=== PATIENT | male | born 2000 | race Caucasian/White ===

== ENCOUNTER 2019-07-22 20:04 | Emergency (ER) | payer OTHER ==
--- NOTE | 2019-07-22 20:37 | EDM.PDOC ---
ED HPI GENERAL MEDICAL PROBLEM - General Chief Complaint: Fever Stated Complaint: POSSIBLE COVID 19 Time Seen by Provider: 07/22/19 20:15 Source of Information: Reports: Patient History Limitations: Reports: No Limitations - History of Present Illness INITIAL COMMENTS - FREE TEXT/NARRATIVE: Patient is 19-year-old male with no significant past medical history presenting with a chief complaint of fever and cough. Duration of symptoms within 1 day. Patient states that he has associated sore throat. Patient denies any associated shortness of breath or myalgias. Patient has no recent travels no sick contacts. Patient sister works for the [employer]. Patient lives with 1 roommate. Patient denies any difficulty breathing, difficulty swallowing , vomiting or diarrhea. Patient took TheraFlu with minimal relief of symptoms. Pmhx: None Pshx: None Family Hx: noncontributory Smoking history? no Etoh use? none Drug use? none In addition to that documented in the HPI above, the additional ROS was obtained : Constitutional: Subjective fever Eyes: Denies vision changes ENMT: Per HPI CV: Denies chest pain Resp: Denies SOB GI: Denies vomiting or diarrhea : Denies painful urination MSK: Denies recent trauma Skin: Denies new rashes Neuro: Denies new numbness or tingling or weakness Endocrine: Denies unexpected weight loss Heme: Denies bleeding disorders I have reviewed the triage vital signs Const: Well nourished, well developed, appears stated age Eyes: Pupils equal bilaterally, no conjunctival injection HENT: NCAT, Neck supple without meningismus CV: Well-perfused extremities RESP: Respirations are normal, unlabored respiratory effort GI: soft, non-tender, non-distended, no masses MSK: No gross deformities appreciated Skin: Warm, dry. No rashes Neuro: Alert, grease man II-XII grossly intact. Moving all 4 extremities equally Psych: Appropriate mood and affect Assessment and plan: Patient is 19-year-old male no significant past medical history presenting with cough and fever. Patient likely has upper respiratory tract infection. However , given the current outbreak of COVID-19 patient will be swabbed for the coronavirus. Patient does not meet any inpatient admission criteria. No evidence of pneumonia based on symptoms and exam. Patient will be given return precautions and education regarding isolation. All questions were addressed and answered. Patient given Tessalon for cough. Patient given monitoring instructions and when to return to the ER. throat Pain Score (Numeric/FACES): 5 - Related Data Allergies Allergy/AdvReac Type Severity Reaction Status Date / Time No Known Allergies Allergy Verified 07/22/19 20:11 Home Meds: Home Meds . [No Known Home Meds] 07/22/19 [History] Past Medical History - Infectious Disease History Infectious Disease History: Reports: Chicken Pox - Past Surgical History GI Surgical History: Reports: Appendectomy Musculoskeletal Surgical History: Reports: Other (See Below) Other Musculoskeletal Surgeries/Procedures:: right leg surgery Social & Family History - Family History Family Medical History: Noncontributory - Tobacco Use Smoking Status *Q: Current Every Day Smoker Years of Tobacco use: 1 Packs/Tins Daily: 1 - Caffeine Use Caffeine Use: Reports: Coffee - Recreational Drug Use Recreational Drug Use: No ED ROS GENERAL - Review of Systems Review Of Systems: See Below ED EXAM, GENERAL - Physical Exam Exam: See Below Course - Vital Signs Last Recorded V/S: Last Vital Signs Temp 36.6 C 07/22/19 21:00 Pulse 78 07/22/19 21:00 Resp 18 07/22/19 21:00 BP 129/70 07/22/19 21:00 Pulse Ox 100 07/22/19 21:00 - Orders/Labs/Meds Orders: Active Orders 24 hr Category Date Time Status CORONAVIRUS COVID-19 PCR [facility] Stat Lab 07/22/19 20:56 Received Departure - Departure Time of Disposition: 20:37 Disposition: Home, Self-Care 01 Clinical Impression: URI (upper respiratory infection) - Discharge Information Instructions: Upper Respiratory Infection, Adult, [id number] Referrals: PCP,None [Primary Care Provider] - Forms: ED Department Discharge Sepsis Event Note - Evaluation Sepsis Screening Result: No Definite Risk - Focused Exam Vital Signs: Vital Signs Temp Pulse Resp BP Pulse Ox 07/22/19 21:00 36.6 C 78 18 129/70 100 07/22/19 20:11 36.3 C 81 17 150/87 H 100 Date Exam was Performed: 07/22/19 Time Exam was Performed: 22:08 - My Orders Last 24 Hours: My Active Orders 07/22/19 20:56 CORONAVIRUS COVID-19 PCR [facility] Stat - Assessment/Plan Last 24 Hours: My Active Orders 07/22/19 20:56 CORONAVIRUS COVID-19 PCR [facility] Stat
== END 2019-07-22 21:03 | disposition home or self-care (01) ==
LOC: MW.ED 20:04
DX: J06.9 Acute upper respiratory infection, unspecified (principal); F17.210 Nicotine dependence, cigarettes, uncomplicated
CPT/HCPCS: 99282; 99283; U0002